=== PATIENT | male | born 1950 | race Caucasian/White ===

== ENCOUNTER → 2017-03-24 | Outpatient (CLI) | payer BC, OTHER ==
[~2017-03-24] VITALS: Ht 170.2 cm; Wt 80.7 kg
[~2017-03-24] MED LIST: CO Q-10100 MG PO; LISINOPRIL10 MG PO; OMEGA-31000 M1 PO; TURMERIC COMPL1 EACH PO; VITAMIN D1000 UNI1 PO; VITAMIN K100 MCG PO; ZOCOR40 MG PO
--- NOTE | ~2017-03-24 | CATHLAB ---
[facility] [address] [place] [address] INVASIVE PROCEDURE REPORT Name: ALINE VITALE Room #: REG GERMAN Del Toro#: [id number] Admission: 03/24/17 Attend Phys: Stuart Snow Discharge: Date of : 54 Date of Service: 03/24/17 1315 Report #: [id number] THIS REPORT FOR: //name// APPROVED REPORT Patient Details Patient Status: Out-Patient Room #: The patient is a 66 year-old male Event Personnel Gunner Lira RN, Josh Williamson RN RN, Stuart Palm Test Driver, Aline Al Brown, Roberta Monitor Procedures Performed Left Heart Cath w/or w/o Coronaries [id number] [facility], Supervision of conscious sedation Indication Positive stress test, Elevated coronary calcium score Procedure Narrative The Right Groin^ was infiltrated with 1% Lidocaine subcutaneous anesthesia. A PINNACLE 4FR Sheath #[id number] sheath was inserted into the RFA^. Coronary angiography was performed using coronary diagnostic catheters. The right coronary system was accessed and visualized with a JR4 catheter. The left coronary system was accessed and visualized with a JL4 catheter. The left ventricle was accessed and visualized with a PIGTAIL catheter. Left ventricular/Aortic Valve gradient assessed via catheter pullback. Hemostasis was obtained with manual pressure following sheath removal without any complications. The patient tolerated the procedure well and there were no complications associated with the procedure. There was no hematoma. Intraoperative Conscious Sedation Sedation start time: Case end Time: 12:002 Versed mg Fluoro Time: 2.19 minutes Dose: DAP 2398.60 cGycm2 345 mGy Contrast Type and Amount: Omnipaque 55 ml Diagnostic Cath [facility] [place] [address] INVASIVE PROCEDURE REPORT Name: ALINE VITALE Room #: REG REPLACED BY [facility]#: [id number] Admission: 03/24/17 Attend Phys: Stuart Snow Discharge: Date of : 54 Date of Service: 03/24/17 1315 Report #: [id number] Left Main Normal origin and caliber bifurcates into left anterior descending left circumflex. It is free of high-grade disease and has mild calcification is noted on fluoroscopy LAD Moderate caliber type III vessel. There is a taper prior to the origin of the first diagonal and second diagonal branches which is not flow-limiting and less than 30%. The LAD then continues tapering terminates as a bifurcating vessel at the apex at a smaller diameter in caliber then its proximal course Diagonal 1 Small caliber vessel without significant irregularities or luminal flow limitation Diagonal 2 Small-caliber vessel free of high-grade disease Circumflex Model moderate caliber vessel which has an early marginal branch which is free of high-grade disease. The circumflex then continues on and terminates as a posterolateral wall bifurcating marginal which is free of high-grade disease and less than 1.5 mm in diameter OM1 Small-caliber free of significant stenosis fairly tapering from its origin to its terminus Right Coronary Large-caliber dominant vessel which has no significant irregularities noted. It courses posteriorly giving rise to posterior descending artery and posterior lateral branch is quite large and long in length all of which are free of high-grade disease R PDA Small moderate caliber vessel free of significant stenosis Hemodynamics The aortic pressure is 143/83 mmHg with a mean of 110 mmHg. The left ventricular pressure is 149/11 mmHg with a mean of mmHg. The left ventricular end diastolic pressure is 30 mmHg. Conclusion 1. Mild nonobstructive coronary artery disease involving primarily the distal LAD segment consisting of luminal irregularities 2. Normal hemodynamics Recommendations Cardiac Risk Reduction Program <ELECTRONICALLY SIGNED> By: Stuart Palm MD 03/24/17 1315 1315 1315 Stuart Palm MD /INF
[2017-03-24 10:13] VITALS: BP 140/92
[2017-03-24 10:16] LABS: HEMATOCRIT 51.9 % (42.0-52.0); HEMOGLOBIN 18.1 gm/dL (14.0-18.0); MCH 31.2 pg (26.0-34.0); MCHC 34.8 g/dL (28.0-37.0); MCV 89.7 fL (80.0-100.0); RBC 5.78 mil/uL (4.50-6.00); WBC 5.6 thou/uL (4.0-11.0)
[2017-03-24 10:23] LABS: CALCIUM 9.4 mg/dL (8.5-10.1); CREATININE 1.2 mg/dL (0.7-1.3); POTASSIUM 3.9 mmol/L (3.5-5.1)
[2017-03-24 10:28] LABS: PROTIME 10.7 Seconds (9.3-11.4)
== END | disposition home or self-care (01) ==
LOC: CATH 09:28
PROVIDERS: Internal Medicine
DX: I25.10 Atherosclerotic heart disease of native coronary artery without angina pectoris (principal); I10 Essential (primary) hypertension; E78.5 Hyperlipidemia, unspecified